=== PATIENT | male | born 1980 | race Two or more races ===

== ENCOUNTER 2024-02-08 12:40 | Inpatient (IN) | payer BC, OTHER ==
[~2024-02-08] VITALS: Ht 170.2 cm; Wt 94.2 kg
[2024-02-08 14:54] LABS: Urine Bacteria MANY /hpf (None Seen); Urine Blood 2+ /uL (Negative); Urine Clarity Turbid (Clear); Urine Color Yellow (Yellow); Urine Protein, UAD 1+ (Negative); Urine Specific Gravity 1.014 (1.001-1.035); Urine Urobilinogen 4 mg/dL (Negative); Urine WBC 84 /hpf (0 - 3); Urine WBC Clumps PRESENT /hpf (None Seen); Urine pH 5.5 (5.0-9.0)
[2024-02-08] MEDS: SODIUM CHLORIDE 0.9% 1,000 ML IV ONE ×3 (15:16→15:21)
[2024-02-08 15:31] LABS: Basophils # (auto) 0 10 ^3/uL (0-0.2); Eosinophils # (auto) 0 10 ^3/uL (0-0.8); Eosinophils % (auto) 0.1 % (0.0-7.0); Mean Corpuscular Hgb Conc. 33.6 g/dL (32.0-36.0)
[2024-02-08 15:33] LABS: Basophils % (auto) 0.2 % (0.0-2.0); Hematocrit 35.3 % (41.0-53.0); Hemoglobin 11.9 g/dL (13.5-17.5); Lymphocytes # (auto) 1.1 10 ^3/uL (0.4-5.4); Lymphocytes % (auto) 7.4 % (10.0-50.0); Mean Corpuscular Hemoglobin 25.6 pg (28.0-32.0); Mean Corpuscular Volume 76.3 fL (80.0-100.0); Monocytes # (auto) 1.2 10 ^3/uL (0-1.3); Monocytes % (auto) 8.4 % (0.0-12.0); Neutrophils # (auto) 12.4 10 ^3/uL (1.6-8.6); Neutrophils % (auto) 83.9 % (37.0-80.0); Red Blood Cells 4.63 10^6/uL (4.5-5.90); Red Cell Distribution Width 16.9 % (11.8-14.3); White Blood Cell 14.8 10^3/uL (4.4-10.8)
[2024-02-08] MEDS: ONDANSETRON HCL 4 MG/2 ML VIAL IV ONE (15:41)
[2024-02-08] MEDS: InsuLIN REG 1unit/0.01ml Soln (100units/ml) IV ONE (15:42)
[2024-02-08] MEDS: MORPHINE SULFATE 4 MG/ML SYR/VIAL IV ONE (15:42)
[2024-02-08 15:50] LABS: Alanine Aminotransferase 25 U/L (7-40); Albumin 3.8 g/dL (3.2-4.8); Alkaline Phosphatase 128 U/L (46-116); Anion Gap 8 (5-15); Aspartate Aminotransferase 18 U/L (13-40); BUN/Creatinine Ratio 25.2 (10.0-20.0); Bilirubin, Total 0.9 mg/dL (0.2-1.0); Blood Urea Nitrogen 26 mg/dL (9-23); Calcium 8.5 mg/dL (8.5-10.1); Carbon Dioxide 22 mmol/L (20-30); Chloride 94 mmol/L (98-107); Glucose 304 mg/dL (74-106); Potassium 4.1 mmol/L (3.5-5.1); Sodium 124 mmol/L (136-145); Total Protein 6.6 g/dL (5.7-8.2)
[2024-02-08] MEDS: ACETAMINOPHEN 500 MG TAB PO ONE (15:54)
[2024-02-08] MEDS ORDERED: DEXTROSE (50%) 50ML SYRG IV PRN (17:45)
[2024-02-08] MEDS ORDERED: ONDANSETRON HCL 4 MG/2 ML VIAL IV PRN (17:45)
[2024-02-08] MEDS ORDERED: MORPHINE SULFATE INJ 2 MG/ml SYRG IV PRN ×2 (17:45)
[2024-02-08] MEDS ORDERED: DOCUSATE SOD 100 MG CAP PO PRN (17:45)
[2024-02-08] MEDS ORDERED: NITROGLYCERIN 0.4 MG SL TAB SL PRN (17:45)
[2024-02-08] MEDS ORDERED: HYDROcodone-ACET 5/325MG TAB PO PRN (17:45)
[2024-02-08] MEDS: cefTRIAXone 1GM/50ML D5W 50 ML IV ONE (18:12)
[2024-02-08] MEDS: SODIUM CHLORIDE 0.9% 1,000 ML IV SCH (18:13)
[2024-02-08] MEDS: levoFLOXacin 500MG 100 ML IV ONE (18:28)
[2024-02-08] MEDS: ACCU-CHEK COMFORT CURVE STRIP VI SCH (22:41)
[2024-02-08] MEDS: InsuLIN REG 1unit/0.01ml Soln (100units/ml) SC SCH (22:44)
[2024-02-09] MEDS: PANTOPRAZOLE 40 MG TAB PO SCH (05:43)
[2024-02-09 06:41] LABS: Basophils # (auto) 0 10 ^3/uL (0-0.2); Basophils % (auto) 0.1 % (0.0-2.0); Eosinophils # (auto) 0 10 ^3/uL (0-0.8); Hemoglobin 11.8 g/dL (13.5-17.5); Monocytes # (auto) 1.5 10 ^3/uL (0-1.3)
[2024-02-09 06:43] LABS: Hematocrit 33.9 % (41.0-53.0); Lymphocytes % (auto) 6.4 % (10.0-50.0); Mean Corpuscular Hemoglobin 26.4 pg (28.0-32.0); Mean Corpuscular Hgb Conc. 34.8 g/dL (32.0-36.0); Mean Corpuscular Volume 75.8 fL (80.0-100.0); Monocytes % (auto) 9.6 % (0.0-12.0); Neutrophils # (auto) 13.5 10 ^3/uL (1.6-8.6); Neutrophils % (auto) 83.9 % (37.0-80.0); Red Blood Cells 4.47 10^6/uL (4.5-5.90); Red Cell Distribution Width 16.9 % (11.8-14.3); White Blood Cell 16.1 10^3/uL (4.4-10.8)
[2024-02-09] MEDS: InsuLIN REG 1unit/0.01ml Soln (100units/ml) SC SCH ×3 (06:53→21:25)
[2024-02-09 06:56] LABS: Alanine Aminotransferase 20 U/L (7-40); Alkaline Phosphatase 129 U/L (46-116); Anion Gap 12 (5-15); BUN/Creatinine Ratio 19.2 (10.0-20.0); Blood Urea Nitrogen 20 mg/dL (9-23); Calcium 9.2 mg/dL (8.7-10.4); Carbon Dioxide 21 mmol/L (20-30); Chloride 92 mmol/L (98-107); Glucose 241 mg/dL (74-106); Potassium 3.7 mmol/L (3.5-5.1); Sodium 125 mmol/L (136-145)
[2024-02-09 06:57] LABS: Aspartate Aminotransferase 16 U/L (13-40)
[2024-02-09 06:58] LABS: Bilirubin, Total 1.1 mg/dL (0.2-1.0); Total Protein 7.6 g/dL (5.7-8.2)
[2024-02-09 08:01] LABS: Triglycerides 168 mg/dL (< 150)
[2024-02-09 08:02] LABS: Cholesterol 110 mg/dL (< 200); LDL Cholesterol 60 mg/dL (< 100)
[2024-02-09 08:03] LABS: HDL Cholesterol 7 mg/dL (40-59)
[2024-02-09] MEDS: ACETAMINOPHEN 325 MG TAB PO PRN (08:41)
[2024-02-09 08:50] VITALS: PULSE 103; RESP 20; O2SAT 96
[2024-02-09 09:00] VITALS: BP 132/70; PULSE 103; RESP 20; TEMP 99.6; O2SAT 96
[2024-02-09] MEDS ORDERED: ENAL5TAB22 PO (09:20)
[2024-02-09] MEDS ORDERED: METF-371 PO (09:20)
[2024-02-09] MEDS: cefTRIAXone 1GM/50ML D5W 50 ML IV SCH (10:42)
[2024-02-09] MEDS ORDERED: DEXTROSE (50%) 50ML SYRG IV PRN (11:00)
[2024-02-09] MEDS: ACCU-CHEK COMFORT CURVE STRIP VI SCH (11:30)
[2024-02-09 11:32] LABS: Blood Alcohol 3.2 mg/dL (<10); Magnesium 1.6 mg/dL (1.6-2.6)
[2024-02-09] MEDS: PIPERACILLIN-TAZOB 3.375GM 100 ML IV SCH (11:33)
[2024-02-09 13:00] VITALS: BP 133/84; PULSE 97; RESP 20; TEMP 99.3; O2SAT 98
[2024-02-09 13:08] LABS: COVID19 ANTIGEN SOFIA FIA NEGATIVE (NEGATIVE); Rapid Influenza A Negative (Negative); Rapid Influenza B Negative (Negative)
[2024-02-09] MEDS: MAGNESIUM OXIDE 400 MG TAB PO ONE (16:46)
[2024-02-09] MEDS: ENOXAPARIN SOD 40 MG/0.4 ML SYRINGE SC ONE (16:46)
[2024-02-09 16:47] VITALS: BP 171/89; PULSE 136; RESP 20; TEMP 102; O2SAT 94
[2024-02-09] MEDS: hydrALAZINE HCL 20 MG/ML VL IV PRN (17:27)
[2024-02-09] MEDS: LISINOPRIL 5 MG TAB PO ONE (17:27)
[2024-02-09] MEDS: INSULIN LANTUS (GLARGINE) 1 /0.01ml (100units/ml) SC ONE (17:32)
[2024-02-09 17:34] LABS: Sodium Urine 39 mmol/L (40-220)
[2024-02-09 17:40] LABS: Amphetamine Screen, Urine Neg (NEGATIVE)
[2024-02-09 17:41] LABS: Barbiturate Scree,Urine Neg (NEGATIVE); Benzodiazephine Screen, Urine Neg (NEGATIVE); Cannabinoid Screen, Urine Neg (NEGATIVE); Cocaine Screen, Urine Neg (NEGATIVE); Creatinine, Urine 25.78 mg/dL (30.0-125.0); Opiate Scree,Urine Neg (NEGATIVE); Phencyclidine Screen, Urine Neg (NEGATIVE)
[2024-02-09] MEDS ORDERED: hydrALAZINE HCL 20 MG/ML VL IV SCH (18:00)
[2024-02-09 19:18] LABS: % Iron Saturation 7.4 % (20-55)
[2024-02-09 19:35] LABS: Albumin 3.8 g/dL (3.2-4.8)
[2024-02-09 19:36] LABS: Bilirubin, Direct 0.5 mg/dL (<0.3); Total Protein 7.2 g/dL (5.7-8.2)
[2024-02-09 20:00] VITALS: PULSE 122; RESP 14; O2SAT 96
[2024-02-09 21:00] VITALS: BP 108/60; PULSE 122; RESP 14; TEMP 102.5; O2SAT 96
[2024-02-09] MEDS: ATORVASTATIN 20 MG TAB PO SCH (21:22)
[2024-02-10] VITALS (8 sets, daily range): BP systolic 119–160; BP diastolic 59–98; PULSE 100–120; RESP 14–20; TEMP 98.1–101.2; O2SAT 94–98
[2024-02-10 06:30] LABS: Basophils # (auto) 0 10 ^3/uL (0-0.2); Basophils % (auto) 0.1 % (0.0-2.0); Eosinophils # (auto) 0 10 ^3/uL (0-0.8); Hemoglobin 10.4 g/dL (13.5-17.5); Lymphocytes # (auto) 1.5 10 ^3/uL (0.4-5.4); Lymphocytes % (auto) 9.7 % (10.0-50.0); Mean Corpuscular Hemoglobin 25.4 pg (28.0-32.0); Mean Corpuscular Hgb Conc. 33.6 g/dL (32.0-36.0); Mean Corpuscular Volume 75.7 fL (80.0-100.0); Monocytes # (auto) 1.6 10 ^3/uL (0-1.3); Monocytes % (auto) 10.3 % (0.0-12.0); Neutrophils # (auto) 12.2 10 ^3/uL (1.6-8.6); Neutrophils % (auto) 79.9 % (37.0-80.0); Red Blood Cells 4.09 10^6/uL (4.5-5.90); Red Cell Distribution Width 16.7 % (11.8-14.3); White Blood Cell 15.2 10^3/uL (4.4-10.8)
[2024-02-10 06:41] LABS: Chloride 96 mmol/L (98-107); Potassium 3.6 mmol/L (3.5-5.1); Sodium 124 mmol/L (136-145)
[2024-02-10 06:42] LABS: Anion Gap 8 (5-15); Carbon Dioxide 20 mmol/L (20-30)
[2024-02-10 06:43] LABS: Calcium 8.5 mg/dL (8.5-10.1)
[2024-02-10 06:47] LABS: Glucose 267 mg/dL (74-106)
[2024-02-10 06:48] LABS: Blood Urea Nitrogen 16 mg/dL (9-23); Magnesium 1.5 mg/dL (1.6-2.6)
[2024-02-10] MEDS ORDERED: INSULIN LANTUS (GLARGINE) 1 /0.01ml (100units/ml) SC SCH ×2 (07:00→10:00)
[2024-02-10] MEDS: LISINOPRIL 5 MG TAB PO SCH (09:49)
[2024-02-10] MEDS: ENOXAPARIN SOD 40 MG/0.4 ML SYRINGE SC SCH (09:49)
[2024-02-10] MEDS: MAGNESIUM OXIDE 400 MG TAB PO SCH (09:49)
[2024-02-10] MEDS: INSULIN LANTUS (GLARGINE) 1 /0.01ml (100units/ml) SC SCH (09:56)
[2024-02-10] MEDS: MEROPENEM 1GM IVPB 50 ML IV ONE (11:27)
[2024-02-10] MEDS: MAGNESIUM SULFATE 1GM/100ML 100 ML IV SCH (15:42)
[2024-02-10] MEDS: MEROPENEM 1GM IVPB 50 ML IV SCH (16:45)
[2024-02-10 20:24] LABS: Magnesium 1.6 mg/dL (1.6-2.6)
[2024-02-10 20:26] LABS: Phosphorus 2.6 mg/dL (2.4-5.1)
[2024-02-10] MEDS: SODIUM CHLORIDE 0.9% 1,000 ML IV SCH (20:52)
[2024-02-11] VITALS (8 sets, daily range): BP systolic 130–158; BP diastolic 74–93; PULSE 98–121; RESP 17–20; TEMP 98.2–102.9; O2SAT 95–98
[2024-02-11 06:04] LABS: Basophils # (auto) 0 10 ^3/uL (0-0.2); Basophils % (auto) 0.1 % (0.0-2.0); Eosinophils # (auto) 0 10 ^3/uL (0-0.8); Hematocrit 33.4 % (41.0-53.0); Hemoglobin 10.9 g/dL (13.5-17.5); Lymphocytes # (auto) 1.2 10 ^3/uL (0.4-5.4); Lymphocytes % (auto) 8.1 % (10.0-50.0); Mean Corpuscular Hemoglobin 24.8 pg (28.0-32.0); Mean Corpuscular Hgb Conc. 32.7 g/dL (32.0-36.0); Mean Corpuscular Volume 75.8 fL (80.0-100.0); Monocytes # (auto) 1.2 10 ^3/uL (0-1.3); Monocytes % (auto) 7.6 % (0.0-12.0); Neutrophils # (auto) 12.9 10 ^3/uL (1.6-8.6); Neutrophils % (auto) 84.2 % (37.0-80.0); Red Cell Distribution Width 16.8 % (11.8-14.3); White Blood Cell 15.3 10^3/uL (4.4-10.8)
[2024-02-11 06:14] LABS: Calcium 8.8 mg/dL (8.7-10.4); Chloride 95 mmol/L (98-107); Potassium 3.8 mmol/L (3.5-5.1); Sodium 125 mmol/L (136-145)
[2024-02-11 06:15] LABS: Anion Gap 11 (5-15); Carbon Dioxide 19 mmol/L (20-30)
[2024-02-11 06:20] LABS: BUN/Creatinine Ratio 14.9 (10.0-20.0); Blood Urea Nitrogen 14 mg/dL (9-23); Glucose 249 mg/dL (74-106)
[2024-02-11 06:21] LABS: Magnesium 1.6 mg/dL (1.6-2.6)
[2024-02-11 08:45] LABS: Hepatitis B Surface Antigen Negative (Negative)
[2024-02-11 09:07] LABS: Hepatitis C Antibody Negative (Negative)
[2024-02-11] MEDS: INSULIN LANTUS (GLARGINE) 1 /0.01ml (100units/ml) SC SCH (10:22)
[2024-02-11 11:22] LABS: Urine Bacteria None Seen /hpf (None Seen)
[2024-02-11 11:45] LABS: Protein, Urine 187.7 mg/dL (0.0-11.9)
[2024-02-11 11:47] LABS: Creatinine, Urine 87.91 mg/dL (30.0-125.0); Urine Protein/Creatinine Ratio 2.14
[2024-02-11 11:58] LABS: Urine Blood 3+ /uL (Negative); Urine Clarity Clear (Clear); Urine Color Yellow (Yellow); Urine Protein, UAD 2+ (Negative); Urine Specific Gravity 1.013 (1.001-1.035); Urine Sperm PRESENT /hpf (None Seen); Urine Urobilinogen 2 mg/dL (Negative); Urine WBC 56 /hpf (0 - 3)
[2024-02-11 13:30] LABS: Base Excess -1.5 mmol/L (-2.0-2.0)
[2024-02-11] MEDS: ERGOCALCIFEROL 50,000 UNIT(1.25MG) CAP PO SCH (15:35)
[2024-02-11] MEDS: MAGNESIUM SULFATE 1GM/100ML 100 ML IV SCH (15:35)
[2024-02-11] MEDS: IOHEXOL 300 MG/ML 100ML BOTTLE IJ ONE (18:26)
[2024-02-11] MEDS: cefTRIAXone 2GM/50ML D5W 50 ML IV SCH (22:58)
[2024-02-12] VITALS (9 sets, daily range): BP systolic 112–144; BP diastolic 62–74; PULSE 68–122; RESP 17–21; TEMP 98.4–102.7; O2SAT 95–98
[2024-02-12 06:28] LABS: Basophils # (auto) 0 10 ^3/uL (0-0.2); Basophils % (auto) 0.2 % (0.0-2.0); Eosinophils # (auto) 0 10 ^3/uL (0-0.8); Eosinophils % (auto) 0.1 % (0.0-7.0); Hemoglobin 11.4 g/dL (13.5-17.5); Mean Corpuscular Hemoglobin 25.6 pg (28.0-32.0); Red Cell Distribution Width 17.1 % (11.8-14.3)
[2024-02-12 06:31] LABS: Hematocrit 33.7 % (41.0-53.0); Lymphocytes # (auto) 1.5 10 ^3/uL (0.4-5.4); Lymphocytes % (auto) 9.6 % (10.0-50.0); Mean Corpuscular Hgb Conc. 33.8 g/dL (32.0-36.0); Mean Corpuscular Volume 75.8 fL (80.0-100.0); Monocytes % (auto) 6.2 % (0.0-12.0); Neutrophils # (auto) 13.5 10 ^3/uL (1.6-8.6); Neutrophils % (auto) 83.9 % (37.0-80.0); Red Blood Cells 4.44 10^6/uL (4.5-5.90); White Blood Cell 16.1 10^3/uL (4.4-10.8)
[2024-02-12 06:35] LABS: Anion Gap 8 (5-15); Carbon Dioxide 22 mmol/L (20-30); Chloride 96 mmol/L (98-107); Potassium 3.9 mmol/L (3.5-5.1); Sodium 126 mmol/L (136-145)
[2024-02-12 06:41] LABS: BUN/Creatinine Ratio 12.1 (10.0-20.0); Blood Urea Nitrogen 12 mg/dL (9-23); Glucose 193 mg/dL (74-106)
[2024-02-12 06:42] LABS: Magnesium 1.8 mg/dL (1.6-2.6)
[2024-02-13] VITALS (9 sets, daily range): BP systolic 105–161; BP diastolic 61–82; PULSE 88–119; RESP 17–21; TEMP 98.7–103; O2SAT 96–99
[2024-02-13 06:58] LABS: Basophils # (auto) 0 10 ^3/uL (0-0.2); Basophils % (auto) 0.2 % (0.0-2.0); Eosinophils # (auto) 0 10 ^3/uL (0-0.8); Eosinophils % (auto) 0.1 % (0.0-7.0); Hemoglobin 11.1 g/dL (13.5-17.5); Lymphocytes # (auto) 1.4 10 ^3/uL (0.4-5.4)
[2024-02-13 07:02] LABS: Hematocrit 32.8 % (41.0-53.0); Lymphocytes % (auto) 9.3 % (10.0-50.0); Mean Corpuscular Hemoglobin 25.7 pg (28.0-32.0); Mean Corpuscular Hgb Conc. 33.9 g/dL (32.0-36.0); Mean Corpuscular Volume 75.7 fL (80.0-100.0); Monocytes % (auto) 6.5 % (0.0-12.0); Neutrophils # (auto) 12.5 10 ^3/uL (1.6-8.6); Neutrophils % (auto) 83.9 % (37.0-80.0); Red Blood Cells 4.34 10^6/uL (4.5-5.90); White Blood Cell 14.9 10^3/uL (4.4-10.8)
[2024-02-13 07:07] LABS: RPR Non Reactive (Non Reactive)
[2024-02-13 07:30] LABS: Anion Gap 7 (5-15); Carbon Dioxide 22 mmol/L (20-30); Chloride 98 mmol/L (98-107); Potassium 3.7 mmol/L (3.5-5.1); Sodium 127 mmol/L (136-145)
[2024-02-13 07:31] LABS: Calcium 8.9 mg/dL (8.7-10.4)
[2024-02-13 07:36] LABS: BUN/Creatinine Ratio 11.5 (10.0-20.0); Blood Urea Nitrogen 10 mg/dL (9-23); Glucose 193 mg/dL (74-106); Magnesium 1.6 mg/dL (1.6-2.6)
[2024-02-13 08:45] LABS: CRP High Sensitivity 0.64 mg/dL (<1.0)
[2024-02-13 09:21] LABS: Erythrocyte Sedimentation Rate 97 mm/hr (0-20)
[2024-02-13] MEDS: SODIUM CHLORIDE 1 GM TAB PO SCH (14:30)
[2024-02-13 18:06] LABS: Chlamydia Trachomatis, NAA Negative (Negative); Neisseria gonorrhoeae, NAA Negative (Negative)
[2024-02-13] MEDS: ACETYLCYSTEINE ORAL for CIN 20%(200MG/ML) 4ML PO SCH (23:05)
[2024-02-14] VITALS (8 sets, daily range): BP systolic 103–140; BP diastolic 68–87; PULSE 95–104; RESP 16–18; TEMP 97.6–99.9; O2SAT 95–99
[2024-02-14 08:06] LABS: Rheumatoid Arthritis Factor 10.7 IU/mL (<14.0)
[2024-02-14 08:22] LABS: Basophils # (auto) 0 10 ^3/uL (0-0.2); Eosinophils # (auto) 0 10 ^3/uL (0-0.8); Eosinophils % (auto) 0.3 % (0.0-7.0); Monocytes # (auto) 1.1 10 ^3/uL (0-1.3); White Blood Cell 12.5 10^3/uL (4.4-10.8)
[2024-02-14 08:23] LABS: Basophils % (auto) 0.2 % (0.0-2.0); Hematocrit 30.9 % (41.0-53.0); Hemoglobin 10.5 g/dL (13.5-17.5); Lymphocytes # (auto) 1.6 10 ^3/uL (0.4-5.4); Lymphocytes % (auto) 12.7 % (10.0-50.0); Mean Corpuscular Hemoglobin 25.5 pg (28.0-32.0); Mean Corpuscular Hgb Conc. 33.9 g/dL (32.0-36.0); Mean Corpuscular Volume 75.3 fL (80.0-100.0); Monocytes % (auto) 8.5 % (0.0-12.0); Neutrophils # (auto) 9.8 10 ^3/uL (1.6-8.6); Neutrophils % (auto) 78.3 % (37.0-80.0); Red Cell Distribution Width 16.8 % (11.8-14.3)
[2024-02-14 08:38] LABS: Anion Gap 5 (5-15); Carbon Dioxide 24 mmol/L (20-30); Chloride 101 mmol/L (98-107); Potassium 3.6 mmol/L (3.5-5.1); Sodium 130 mmol/L (136-145)
[2024-02-14 08:39] LABS: Calcium 8.6 mg/dL (8.5-10.1)
[2024-02-14 08:44] LABS: BUN/Creatinine Ratio 10.6 (10.0-20.0); Blood Urea Nitrogen 9 mg/dL (9-23); Glucose 162 mg/dL (74-106); Magnesium 1.5 mg/dL (1.6-2.6)
[2024-02-14] MEDS: IOHEXOL 300 MG/ML 100ML BOTTLE IJ ONE (12:03)
[2024-02-14] MEDS ORDERED: predniSONE 20 MG TAB PO ONE (12:30)
[2024-02-14] MEDS ORDERED: diphenhdrAMINE HCL 25 MG CAP PO ONE (12:30)
[2024-02-14] MEDS: MAGNESIUM SULFATE 1GM/100ML 100 ML IV SCH (12:36)
[2024-02-14] MEDS ORDERED: MAGNESIUM SULFATE 1GM/100ML 100 ML IV SCH (14:00)
[2024-02-14] MEDS: diphenhdrAMINE HCL 25 MG CAP PO ONE (14:43)
[2024-02-14] MEDS: predniSONE 20 MG TAB PO ONE (14:43)
[2024-02-15] VITALS (7 sets, daily range): BP systolic 119–124; BP diastolic 71–83; PULSE 86–99; RESP 16–18; TEMP 97.4–98.6; O2SAT 96–99
[2024-02-15 06:18] LABS: Basophils # (auto) 0 10 ^3/uL (0-0.2); Basophils % (auto) 0.1 % (0.0-2.0); Eosinophils # (auto) 0 10 ^3/uL (0-0.8); Eosinophils % (auto) 0.1 % (0.0-7.0); Hematocrit 35.5 % (41.0-53.0); Lymphocytes # (auto) 0.8 10 ^3/uL (0.4-5.4); Lymphocytes % (auto) 11.3 % (10.0-50.0); Mean Corpuscular Hemoglobin 25.7 pg (28.0-32.0); Mean Corpuscular Hgb Conc. 33.9 g/dL (32.0-36.0); Monocytes # (auto) 0.3 10 ^3/uL (0-1.3); Monocytes % (auto) 3.7 % (0.0-12.0); Neutrophils # (auto) 5.8 10 ^3/uL (1.6-8.6); Neutrophils % (auto) 84.8 % (37.0-80.0); Red Blood Cells 4.67 10^6/uL (4.5-5.90); Red Cell Distribution Width 16.9 % (11.8-14.3); White Blood Cell 6.9 10^3/uL (4.4-10.8)
[2024-02-15 06:33] LABS: Alanine Aminotransferase 33 U/L (7-40); Albumin 3.8 g/dL (3.2-4.8); Alkaline Phosphatase 137 U/L (46-116); Anion Gap 8 (5-15); Aspartate Aminotransferase 25 U/L (13-40); BUN/Creatinine Ratio 16.7 (10.0-20.0); Bilirubin, Total 0.4 mg/dL (0.2-1.0); Blood Urea Nitrogen 14 mg/dL (9-23); Calcium 9.4 mg/dL (8.5-10.1); Carbon Dioxide 22 mmol/L (20-30); Chloride 102 mmol/L (98-107); Magnesium 2.1 mg/dL (1.6-2.6); Sodium 132 mmol/L (136-145); Total Protein 7.6 g/dL (5.7-8.2)
[2024-02-15 06:36] LABS: Glucose 335 mg/dL (74-106)
[2024-02-15 09:06] LABS: Anti-Centromere B Antibody <0.2 AI (0.0-0.9); Anti-Jo-1 Antibody <0.2 AI (0.0-0.9); Anti-Nuclear Antibody Direct Negative (Negative); Anti-dsDNA Antibody <1 IU/mL (0-9); Antichromatin Antibody <0.2 AI (0.0-0.9); Antiscleroderma-70 Antibody <0.2 AI (0.0-0.9); RNP Antibody <0.2 AI (0.0-0.9); Sjogren's Anti-SS-A Antibody <0.2 AI (0.0-0.9); Sjogren's Anti-SS-B Antibody <0.2 AI (0.0-0.9); Smith Antibody <0.2 AI (0.0-0.9)
[2024-02-15 11:11] LABS: Folate (Folic Acid) 17.49 ng/mL (>5.38)
[2024-02-15] MEDS: INSULIN LANTUS (GLARGINE) 1 /0.01ml (100units/ml) SC SCH (12:09)
[2024-02-16 01:00] VITALS: BP 154/87; PULSE 91; RESP 17; TEMP 97.5; O2SAT 100
[2024-02-16 04:06] LABS: CMV IgM Antibody <30.0 AU/mL (0.0-29.9); EBV Ab VCA IgG Antibody >600.0 U/mL (0.0-17.9); EBV Ab VCA IgM Antibody <36.0 U/mL (0.0-35.9)
[2024-02-16 05:00] VITALS: BP 155/90; PULSE 91; RESP 18; TEMP 97.8; O2SAT 98
[2024-02-16 09:00] VITALS: BP 141/83; PULSE 86; RESP 18; TEMP 98.1; O2SAT 96
[2024-02-16 09:02] LABS: Basophils # (auto) 0 10 ^3/uL (0-0.2); Lymphocytes # (auto) 2.3 10 ^3/uL (0.4-5.4); Neutrophils # (auto) 6.7 10 ^3/uL (1.6-8.6)
[2024-02-16 09:04] LABS: Basophils % (auto) 0.4 % (0.0-2.0); Eosinophils # (auto) 0.1 10 ^3/uL (0-0.8); Eosinophils % (auto) 0.7 % (0.0-7.0); Hematocrit 33.1 % (41.0-53.0); Lymphocytes % (auto) 23.2 % (10.0-50.0); Mean Corpuscular Hemoglobin 25.1 pg (28.0-32.0); Mean Corpuscular Hgb Conc. 33.3 g/dL (32.0-36.0); Mean Corpuscular Volume 75.4 fL (80.0-100.0); Monocytes # (auto) 0.7 10 ^3/uL (0-1.3); Monocytes % (auto) 6.8 % (0.0-12.0); Neutrophils % (auto) 68.9 % (37.0-80.0); Red Cell Distribution Width 16.7 % (11.8-14.3); White Blood Cell 9.8 10^3/uL (4.4-10.8)
[2024-02-16 09:06] LABS: Chloride 107 mmol/L (98-107); Potassium 3.6 mmol/L (3.5-5.1); Sodium 137 mmol/L (136-145)
[2024-02-16 09:07] LABS: Anion Gap 5 (5-15); Calcium 9.3 mg/dL (8.5-10.1); Carbon Dioxide 25 mmol/L (20-30); INR 1.17 (0.9-1.15); Partial Thromboplastin Time 30.6 SEC (24.5-34.5); Prothrombin Time 12.3 sec (9.3-11.8)
[2024-02-16 09:12] LABS: BUN/Creatinine Ratio 14.5 (10.0-20.0); Blood Urea Nitrogen 11 mg/dL (9-23); Magnesium 1.7 mg/dL (1.6-2.6)
[2024-02-16 09:14] LABS: Glucose 130 mg/dL (74-106)
[2024-02-16] MEDS ORDERED: INSLANTI SC (10:57)
[2024-02-16] MEDS ORDERED: CHOL100040 PO (10:57)
[2024-02-16] MEDS ORDERED: INSU100I49 SC (10:57)
[2024-02-16] MEDS ORDERED: ATOR40TA52 PO (10:57)
[2024-02-16] MEDS ORDERED: SAXA1TAB PO (10:57)
[2024-02-16 12:07] LABS: Immunoglobulin A 347 mg/dL (90-386); Immunoglobulin G, Serum 1620 mg/dL (603-1613); Immunoglobulin M 83 mg/dL (20-172)
[2024-02-16 12:51] VITALS: BP 105/61; TEMP 36.6
[2024-02-16 13:00] VITALS: BP 129/76; PULSE 94; RESP 18; TEMP 98.2; O2SAT 98
[2024-02-16 18:06] LABS: Legionella pneumophila Abs Non Reactive (Non Reactive)
[2024-02-16 19:06] LABS: Mycoplasma pneumoniae IgG Ab 198 U/mL (0-99); Mycoplasma pneumoniae IgM Ab <770 U/mL (0-769)
[2024-02-16 22:00] VITALS: BP 117/75; PULSE 68; RESP 18; TEMP 98.2; O2SAT 95
[2024-02-17 01:00] VITALS: BP 96/48; PULSE 64; RESP 19; TEMP 98.1; O2SAT 95
== END 2024-02-16 14:15 | disposition home health service (06) | DRG 871 ==
LOC: ER 12:40 → OVERFLOW 17:51 → WEST WING 02-09 09:07
PROVIDERS: ADMIT Internal Medicine; ATTEND Emergency Medicine
PROC: 05HA33Z Insertion of Infusion Device into Left Brachial Vein, Percutaneous Approach (ICD-10-PCS; principal; 2024-02-15)
PROC: B54NZZA Ultrasonography of Left Upper Extremity Veins, Guidance (ICD-10-PCS; 2024-02-15)
DX: A41.59 Other Gram-negative sepsis (principal); J15.0 Pneumonia due to Klebsiella pneumoniae; E87.1 Hypo-osmolality and hyponatremia; N17.9 Acute kidney failure, unspecified; N13.6 Pyonephrosis; E11.65 Type 2 diabetes mellitus with hyperglycemia; E66.9 Obesity, unspecified; E78.5 Hyperlipidemia, unspecified; D50.9 Iron deficiency anemia, unspecified; E11.22 Type 2 diabetes mellitus with diabetic chronic kidney disease; E83.42 Hypomagnesemia; E86.0 Dehydration; N18.2 Chronic kidney disease, stage 2 (mild); D17.79 Benign lipomatous neoplasm of other sites; R16.2 Hepatomegaly with splenomegaly, not elsewhere classified; R91.1 Solitary pulmonary nodule; Z20.822 Contact with and (suspected) exposure to COVID-19; I12.9 Hypertensive chronic kidney disease with stage 1 through stage 4 chronic kidney disease, or unspecified chronic kidney disease; Z91.013 Allergy to seafood; Z68.32 Body mass index [BMI] 32.0-32.9, adult; Z83.3 Family history of diabetes mellitus; Z79.84 Long term (current) use of oral hypoglycemic drugs
CPT/HCPCS: 36415; 36600; 71045; 71250; 74176; 74177; 74178; 76775; 80048; 80053; 80061; 80076; 80307; 80320; 81001; 82010; 82088; 82150; 82306; 82384; 82533; 82550; 82570; 82607; 82728; 82746; 82784; 82805; 82962; 83010; 83036; 83516; 83540; 83550; 83605; 83615; 83690; 83735; 83835; 83880; 83930; 83935; 83970; 84100; 84133; 84156; 84244; 84300; 84443; 84550; 84585; 85025; 85610; 85652; 85730; 86038; 86141; 86225; 86235; 86334; 86431; 86592; 86644; 86645; 86664; 86738; 86803; 86880; 86885; 87040; 87077; 87086; 87088; 87186; 87278; 87340; 87426; 87804; 96365; 96375; G0378; J1815; J1956; J2185; J2405; J2543

== ENCOUNTER → 2024-03-07 | Outpatient (CLI) | payer BC ==
[~2024-03-07] MED LIST: ATOR40TA52 PO; CHOL100040 PO; ENAL5TAB22 PO; INSLANTI SC; INSU100I49 SC; SAXA1TAB PO
[2024-03-07 15:53] LABS: Basophils # (auto) 0.1 10 ^3/uL (0-0.2); Eosinophils # (auto) 0.2 10 ^3/uL (0-0.8); Monocytes # (auto) 0.6 10 ^3/uL (0-1.3); Neutrophils # (auto) 4.2 10 ^3/uL (1.6-8.6)
[2024-03-07 15:57] LABS: Eosinophils % (auto) 2.1 % (0.0-7.0); Hematocrit 39.7 % (41.0-53.0); Hemoglobin 13.3 g/dL (13.5-17.5); Lymphocytes # (auto) 2.2 10 ^3/uL (0.4-5.4); Mean Corpuscular Hemoglobin 26.4 pg (28.0-32.0); Mean Corpuscular Hgb Conc. 33.4 g/dL (32.0-36.0); Monocytes % (auto) 7.7 % (0.0-12.0); Neutrophils % (auto) 58.2 % (37.0-80.0); Red Blood Cells 5.02 10^6/uL (4.5-5.90); Red Cell Distribution Width 19.8 % (11.8-14.3); White Blood Cell 7.2 10^3/uL (4.4-10.8)
[2024-03-07 16:24] LABS: Alanine Aminotransferase 24 U/L (7-40); Albumin 4.6 g/dL (3.2-4.8); Alkaline Phosphatase 84 U/L (46-116); Anion Gap 13 (5-15); Aspartate Aminotransferase 18 U/L (13-40); BUN/Creatinine Ratio 13.3 (10.0-20.0); Blood Urea Nitrogen 12 mg/dL (9-23); Calcium 10.4 mg/dL (8.5-10.1); Carbon Dioxide 19 mmol/L (20-30); Chloride 107 mmol/L (98-107); Glucose 155 mg/dL (74-106); Potassium 4.4 mmol/L (3.5-5.1); Sodium 139 mmol/L (136-145)
[2024-03-07 16:25] LABS: Bilirubin, Total 0.9 mg/dL (0.2-1.0); Total Protein 7.7 g/dL (5.7-8.2)
[2024-03-07 16:46] LABS: Urine Bacteria FEW /hpf (None Seen); Urine Blood Negative /uL (Negative); Urine Clarity Clear (Clear); Urine Color Light-Yellow (Yellow); Urine Protein, UAD 1+ (Negative); Urine Specific Gravity 1.016 (1.001-1.035); Urine Urobilinogen Normal (Negative); Urine WBC 36 /hpf (0 - 3); Urine pH 5.5 (5.0-9.0)
== END | disposition home or self-care (01) ==
LOC: LAB 15:37
PROVIDERS: ATTEND Internal Medicine
DX: N39.0 Urinary tract infection, site not specified (principal)
CPT/HCPCS: 36415; 80053; 81001; 85025; 87086

== ENCOUNTER → 2024-04-22 | Outpatient (CLI) | payer BC | END | disposition home or self-care (01) | LOC: XYW 14:47 | PROVIDERS: ATTEND Internal Medicine Pulmonary Disease | DX: R06.09 Other forms of dyspnea (principal); R06.02 Shortness of breath | CPT/HCPCS: 94060; 94727; 94729 ==

== ENCOUNTER → 2024-06-17 | Outpatient (CLI) | payer BC ==
[2024-06-17 11:34] LABS: Urine Bacteria None Seen /hpf (None Seen)
[2024-06-17 12:11] LABS: Urine Blood Negative /uL (Negative); Urine Clarity Clear (Clear); Urine Color Light-Yellow (Yellow); Urine Hyaline Cast FEW /lpf (0 - 2); Urine Protein, UAD 1+ (Negative); Urine Specific Gravity 1.014 (1.001-1.035); Urine Urobilinogen Normal (Negative); Urine WBC 3 /hpf (0 - 3); Urine pH 5.5 (5.0-9.0)
[2024-06-17 12:34] LABS: Alanine Aminotransferase 30 U/L (7-40); Albumin 4.8 g/dL (3.2-4.8); Alkaline Phosphatase 80 U/L (46-116); Anion Gap 8 (5-15); BUN/Creatinine Ratio 18.3 (10.0-20.0); Blood Urea Nitrogen 17 mg/dL (9-23); Calcium 10.2 mg/dL (8.7-10.4); Carbon Dioxide 24 mmol/L (20-31); Chloride 109 mmol/L (98-107); Glucose 161 mg/dL (74-106); Potassium 4.5 mmol/L (3.5-5.1); Sodium 141 mmol/L (136-145)
[2024-06-17 12:35] LABS: Bilirubin, Total 0.6 mg/dL (0.2-1.0); Total Protein 7.5 g/dL (5.7-8.2)
[2024-06-17 13:57] LABS: Aspartate Aminotransferase 25 U/L (13-40)
== END | disposition home or self-care (01) ==
LOC: LAB 11:25
PROVIDERS: ATTEND Internal Medicine
DX: E11.22 Type 2 diabetes mellitus with diabetic chronic kidney disease (principal); D50.9 Iron deficiency anemia, unspecified; N18.9 Chronic kidney disease, unspecified
CPT/HCPCS: 36415; 80053; 81001

== ENCOUNTER → 2024-07-08 | Outpatient (CLI) | payer BC ==
[2024-07-08 10:06] LABS: Urine Bacteria None Seen /hpf (None Seen)
[2024-07-08 10:32] LABS: Urine Blood Negative /uL (Negative); Urine Clarity Clear (Clear); Urine Color Light-Yellow (Yellow); Urine Protein, UAD 1+ (Negative); Urine Specific Gravity 1.013 (1.001-1.035); Urine Urobilinogen 2 mg/dL (Negative); Urine WBC 2 /hpf (0 - 3); Urine pH 6.5 (5.0-9.0)
[2024-07-08 10:40] LABS: Anion Gap 6 (5-15); Calcium 10.5 mg/dL (8.7-10.4); Carbon Dioxide 28 mmol/L (20-31); Chloride 106 mmol/L (98-107); Potassium 4.2 mmol/L (3.5-5.1); Sodium 140 mmol/L (136-145)
[2024-07-08 10:46] LABS: BUN/Creatinine Ratio 16.7 (10.0-20.0); Blood Urea Nitrogen 16 mg/dL (9-23); Glucose 106 mg/dL (74-106)
== END | disposition home or self-care (01) ==
LOC: LAB 09:51
PROVIDERS: ATTEND Internal Medicine
DX: I12.9 Hypertensive chronic kidney disease with stage 1 through stage 4 chronic kidney disease, or unspecified chronic kidney disease (principal); R82.90 Unspecified abnormal findings in urine; N18.9 Chronic kidney disease, unspecified
CPT/HCPCS: 36415; 80048; 81001

== ENCOUNTER → 2024-07-22 | Outpatient (CLI) | payer BC ==
[2024-07-22 09:44] LABS: Alanine Aminotransferase 34 U/L (7-40); Albumin 4.7 g/dL (3.2-4.8); Alkaline Phosphatase 64 U/L (46-116); Anion Gap 8 (5-15); Aspartate Aminotransferase 24 U/L (13-40); BUN/Creatinine Ratio 21.9 (10.0-20.0); Blood Urea Nitrogen 21 mg/dL (9-23); Calcium 10.4 mg/dL (8.7-10.4); Carbon Dioxide 23 mmol/L (20-31); Chloride 108 mmol/L (98-107); Glucose 177 mg/dL (74-106); Potassium 4.5 mmol/L (3.5-5.1); Sodium 139 mmol/L (136-145); Total Protein 7.4 g/dL (5.7-8.2)
== END | disposition home or self-care (01) ==
LOC: LAB 08:45
PROVIDERS: ATTEND Internal Medicine
DX: E11.22 Type 2 diabetes mellitus with diabetic chronic kidney disease (principal)
CPT/HCPCS: 36415; 80053

== ENCOUNTER 2025-01-20 08:03 | Outpatient (CLI) | payer BC ==
[~2025-01-20] VITALS: Ht 170.2 cm; Wt 122.5 kg
[2025-01-20] MEDS: REGADENOSON 0.4 MG/5 ML SYRG IV ONE ×2 (09:40→09:43)
--- NOTE | 2025-01-24 10:04 | DVHSR ---
APPROVED REPORT Exam: Nuclear Stress Test Indication: Abnormal EKG BMI: 0 Medical History Medical History: Diabetes, HTN Allergies: Shellfish Stress Test Details Stress Test: Pharmacologic stress testing performed using 0.4 mg of regadenoson per 5 mL given IV ov er 10 seconds. HR Resting HR: 93 bpmMax Heart Rate (APMHR): 176.114107 bpm Max HR Achieved: 109 bpmTarget HR (85% APMHR): 149.844018 bpm % of APMHR: 61.93 Recovery HR: 99 bpm BP Resting BP: 145/84 mmHg Recovery BP: 149/79 mmHg ECG Resting ECG: Sinus Rhythm Clinical Reason for Termination: Completed protocol Nurse Comments Recieved pt. from [facility]. A/Ox4 on RA. Connected to police captain senior, VS stable. PIV flushes well. Reviewed POC. Pt. verbalized understanding of procedure including risks and side ef fects, agrees for stress testing. Lexiscan stress test performed per protocol. [email or web address] administered Cardiolite. Pt. tolerated well . Pt. stable, no change on exam. VS returned to baseline. Transferred to [facility] via wheelchair w/ te ch. Stress ECG Conclusion lvef 50% no severe ischemia noted NM EXAM: Myocardial Perfusion REST/STRESS Imaging Protocol: Rest Tc-99m/Stress Tc-99m 1 day Resting Data Rest SPECT myocardial perfusion imaging was performed in supine position 60 minutes following the int ravenous injection of 11.5 mCi of Tc-99m Sestamibi. Time of rest injection: 08:24 Date: 01/20/2025 Time of rest imagin:24 Date: 01/20/2025 Administration Route: IV Administration Site: Right Hand Pharmacologic Stress Pharmacologic stress test was performed by injecting Regadenoson 0.4 mg IV push followed by the intra venous injection of 32.9 mCi of Tc-99m Sestamibi. Time of stress injection: 09:40 Date: 01/20/2025 Time of stress imagin:40 Date: 01/20/2025 Administration Route: IV Administration Site: Right Hand Gated Stress SPECT was performed 60 minutes after stress injection. The images were gated to evaluate regional wall motion and calculate left ventricular ejection fracti on. Stress only was performed in the Supine position. Nuclear Conclusion Nuclear Findings: negative for ischemia lvef 50% no severe ischemia noted
== END 2025-01-20 17:00 | disposition home or self-care (01) ==
LOC: XYW 08:03
PROVIDERS: ATTEND Internal Medicine
DX: R94.31 Abnormal electrocardiogram [ECG] [EKG] (principal); E11.22 Type 2 diabetes mellitus with diabetic chronic kidney disease; N18.9 Chronic kidney disease, unspecified; I12.9 Hypertensive chronic kidney disease with stage 1 through stage 4 chronic kidney disease, or unspecified chronic kidney disease; E11.65 Type 2 diabetes mellitus with hyperglycemia; R00.0 Tachycardia, unspecified; E66.01 Morbid (severe) obesity due to excess calories; Z79.4 Long term (current) use of insulin; Z91.013 Allergy to seafood
CPT/HCPCS: 78452; 93017; A9500; J2785

== ENCOUNTER → 2025-03-17 | Outpatient (CLI) | payer BC ==
[2025-03-17 08:40] LABS: Hematocrit 41.7 % (41.0-53.0); Hemoglobin 13.7 g/dL (13.5-17.5); Mean Corpuscular Hemoglobin 25.4 pg (28.0-32.0); Mean Corpuscular Volume 77.4 fL (80.0-100.0); Nucleated Red Blood Cells % 0.1 %
[2025-03-17 09:19] LABS: Alkaline Phosphatase 49 U/L (46-116); Anion Gap 10 (5-15); BUN/Creatinine Ratio 22.1 (10.0-20.0); Carbon Dioxide 23 mmol/L (20-31); Sodium 142 mmol/L (136-145); Total Protein 7.4 g/dL (5.7-8.2)
[2025-03-17 09:21] LABS: Bilirubin, Total 0.8 mg/dL (0.2-1.0); Cholesterol 113 mg/dL (< 200)
[2025-03-17 09:25] LABS: Alanine Aminotransferase 62 U/L (7-40); Albumin 5.0 g/dL (3.2-4.8); Blood Urea Nitrogen 29 mg/dL (9-23); Calcium 11.1 mg/dL (8.7-10.4); Chloride 109 mmol/L (98-107); Glucose 119 mg/dL (74-106); HDL Cholesterol 23 mg/dL (40-59); Potassium 5.4 mmol/L (3.5-5.1); Triglycerides 239 mg/dL (< 150)
[2025-03-17 10:01] LABS: Iron 80.0 ug/dL (65-175)
[2025-03-17 10:07] LABS: Total Iron Binding Capacity 437.0 ug/dL (250-425)
== END | disposition home or self-care (01) ==
LOC: LAB 07:43
PROVIDERS: ATTEND Internal Medicine
DX: E11.22 Type 2 diabetes mellitus with diabetic chronic kidney disease (principal); N18.2 Chronic kidney disease, stage 2 (mild); E11.69 Type 2 diabetes mellitus with other specified complication; E78.2 Mixed hyperlipidemia; E66.01 Morbid (severe) obesity due to excess calories; R71.8 Other abnormality of red blood cells; R79.9 Abnormal finding of blood chemistry, unspecified; R74.01 Elevation of levels of liver transaminase levels
CPT/HCPCS: 36415; 80053; 80061; 82728; 83540; 83550; 85025

== ENCOUNTER → 2025-03-31 | Outpatient (CLI) | payer BC ==
[2025-03-31 09:37] LABS: Alkaline Phosphatase 51 U/L (46-116); Anion Gap 10 (5-15); BUN/Creatinine Ratio 22.4 (10.0-20.0); Carbon Dioxide 23 mmol/L (20-31); Chloride 106 mmol/L (98-107); Potassium 5.0 mmol/L (3.5-5.1); Sodium 139 mmol/L (136-145); Total Protein 7.2 g/dL (5.7-8.2)
[2025-03-31 09:38] LABS: Bilirubin, Total 0.7 mg/dL (0.2-1.0)
[2025-03-31 09:41] LABS: Alanine Aminotransferase 69 U/L (7-40); Albumin 4.9 g/dL (3.2-4.8); Blood Urea Nitrogen 26 mg/dL (9-23); Calcium 10.7 mg/dL (8.7-10.4); Glucose 164 mg/dL (74-106)
[2025-03-31 11:35] LABS: Microalb/Creat Ratio, Urine 149.0
== END | disposition home or self-care (01) ==
LOC: LAB 08:34
PROVIDERS: ATTEND Internal Medicine
DX: E11.22 Type 2 diabetes mellitus with diabetic chronic kidney disease (principal); N18.2 Chronic kidney disease, stage 2 (mild); E78.5 Hyperlipidemia, unspecified; E78.2 Mixed hyperlipidemia; R79.89 Other specified abnormal findings of blood chemistry
CPT/HCPCS: 36415; 80053; 82043; 82274; 82570

== ENCOUNTER 2025-08-01 08:40 | Outpatient (CLI) | payer BC ==
--- NOTE | 2025-08-02 18:18 | DVHSR ---
APPROVED REPORT EXAM: Two-dimensional and M-mode echocardiogram with Doppler and color Doppler. INDICATION Tachycardia RISK FACTORS Obesity: Height: 66, Weight: 230 DIMENSIONS LVDd 3.8 (3.8-5.7cm) LA (2D) 3.2 (1.9-4.0cm) Aortic Root 3.5 (2.0-3.7cm) LVDs 2.9 (2.5-4.0cm) LA (MM) (1.9-4.0cm) Aortic Cusp Exc 2.1 (1.5-2.0cm) EF (%) 51.0 (55-70%) Rt. Atrium 3.4 (1.9-4.0cm) Asc. Aorta 3.5 cm IVSd 1.2 (0.7-1.1cm) RV (D) (1.8-2.4cm) PWd 1.3 (0.7-1.1cm) Mitral Valve Mitral Mitral Stenosis E wave 0.67m/s MV Mean GR. mmHg A wave 0.73m/s MV Peak GR. mmHg E/A ratio 0.9 2D MVA cm2 DECEL Time 177ms PRESS 1/2 Time ms Aortic Valve Aortic Valve Aortic Stenosis V1 0.85m/s AO Mean GR. 3mmHg V2 1.15m/s AO Peak GR. 5mmHg LVOT Diameter 2.6 (1.8-2.4cm) Doppler WANDY 3.92cm2 Pulmonic Valve V2 1.27m/s Tricuspid Valve RVSP 3mmHg Other Information Technically limited study due to body habitus. Conclusion Sinus rhythm. Concentric LVH. Mild dilation of the sinuses of Valsalva and left atrium. Valves are normal. EF of 60% with normal RV function. Mild TR. No pericardial effusion masses or vegetations.
== END 2025-08-01 17:00 | disposition home or self-care (01) ==
LOC: XYW 08:40
PROVIDERS: ATTEND Internal Medicine
DX: I08.0 Rheumatic disorders of both mitral and aortic valves (principal); R00.0 Tachycardia, unspecified
CPT/HCPCS: 93306